=== PATIENT | male | born 1995 ===

== ENCOUNTER 2022-01-22 07:55 | Emergency (ER) | payer SELFPAY ==
[2022-01-22 09:01] LABS: HCT 48.6 % (42.0-52.0); HGB 16.8 g/dl (13.2-18.0); LYMPHOCYTE 23.9 % (15-48); MCH 30.5 pg (25.0-31.0); MCHC 34.6 g/dL (32.0-36.0); MCV 88.2 fL (78.0-100.0); MONOCYTE 7.6 % (0-12); MPV 8.9 fL (6.0-9.5); NEUTROPHIL 63.2 % (41-80); NRBC 0; PLT 239 K/uL (150-400); RBC 5.51 M/uL (4.70-6.00); RDW 12.2 % (11.5-14.0); WBC 6.8 K/uL (4.0-10.5)
[2022-01-22 09:04] LABS: BILIRUBIN NEGATIVE (NEGATIVE); BLOOD NEGATIVE Ery/uL (NEGATIVE); CLARITY CLEAR (CLEAR); COLOR YELLOW (YELLOW); GLUCOSE (U) NORMAL (NORMAL); LEUKOCYTES NEGATIVE Leu/uL (NEGATIVE); NITRITE NEGATIVE (NEGATIVE); PROTEIN NEGATIVE (NEGATIVE); SPECIFIC GRAVITY 1.015 (1.001-1.030); UROBILINOGEN 0.2 mg/dL (0.2-1.0)
[2022-01-22 09:41] LABS: ALBUMIN 4.3 g/dL (3.4-5.0); BILIRUBIN - TOTAL 0.5 mg/dL (0.2-1.0); BUN/CREAT RATIO (CALC) 15.4 RATIO; CREATININE 1.04 mg/dL (0.67-1.17); GLOBULIN (CALCULATION) 3.7 g/dL; POTASSIUM 4.4 mmol/L (3.5-5.1)
[2022-01-22] MEDS ORDERED: ONDANSETRON ODT4 MG PO (10:09)
== END 2022-01-22 10:35 | disposition home or self-care (01) ==
LOC: FER 07:55
PROVIDERS: Emergency Medicine
DX: R11.2 Nausea with vomiting, unspecified (principal); I10 Essential (primary) hypertension; Z88.0 Allergy status to penicillin; Z88.1 Allergy status to other antibiotic agents; Z91.040 Latex allergy status
CPT/HCPCS: 36415; 80053; 81003; 83690; 85025; 99284; J2405; J7030